=== PATIENT | male | born 1980 | race Hispanic/Latino ===

== ENCOUNTER 2018-10-19 20:04 | Emergency (ER) | payer SELFPAY ==
[2018-10-19 20:29] VITALS: BP 159/93
--- NOTE | 2018-10-19 20:31 | Emergency Department Report ---
ED ENT HPI - General Chief complaint: Dental/Oral Stated complaint: ABSCESS TOOTH/SWELLING/PAIN Time Seen by Provider: 10/19/18 20:27 Source: patient Mode of arrival: Ambulatory Limitations: No Limitations - History of Present Illness Initial comments: pt is a 38 yo male who presents to the ED with c/o left sided facial that began yesterday. pt states he has left lower dental pain. He states he last saw a dentist two years ago. states he has a known bad tooth on the left lower side. no fever, no drainage. no PMHx. no allergies to meds. no daily meds. +smoker, non drinker, +marijuana. - Related Data Previous Rx's Medication Instructions Recorded Last Taken Type Acetaminophen/Codeine [Tylenol 1 tab PO Q6H PRN #12 tab 10/19/18 Unknown Rx /Codeine # 3 tab] Amoxicillin/K Clav Tab [Augmentin 1 tab PO Q12HR 7 Days #14 tab 10/19/18 Unknown Rx 875 mg] Clindamycin [Clindamycin CAP] 450 mg PO TID 7 Days #63 capsule 10/19/18 Unknown Rx Ibuprofen [Motrin 600 MG tab] 600 mg PO Q8H PRN #20 tablet 10/19/18 Unknown Rx Allergies Allergy/AdvReac Type Severity Reaction Status Date / Time No Known Allergies Allergy Unverified 10/19/18 20:06 ED Dental HPI - General Chief complaint: Dental/Oral Stated complaint: ABSCESS TOOTH/SWELLING/PAIN Time Seen by Provider: 10/19/18 20:27 Source: patient Mode of arrival: Ambulatory Limitations: No Limitations - Related Data Previous Rx's Medication Instructions Recorded Last Taken Type Acetaminophen/Codeine [Tylenol 1 tab PO Q6H PRN #12 tab 10/19/18 Unknown Rx /Codeine # 3 tab] Amoxicillin/K Clav Tab [Augmentin 1 tab PO Q12HR 7 Days #14 tab 10/19/18 Unknown Rx 875 mg] Clindamycin [Clindamycin CAP] 450 mg PO TID 7 Days #63 capsule 10/19/18 Unknown Rx Ibuprofen [Motrin 600 MG tab] 600 mg PO Q8H PRN #20 tablet 10/19/18 Unknown Rx Allergies Allergy/AdvReac Type Severity Reaction Status Date / Time No Known Allergies Allergy Unverified 10/19/18 20:06 ED Review of Systems ROS: Stated complaint: ABSCESS TOOTH/SWELLING/PAIN Other details as noted in HPI Comment: All other systems reviewed and negative ED Past Medical Hx - Past Medical History Previous Medical History?: No - Surgical History Past Surgical History?: No - Medications Home Medications: Home Medications Medication Instructions Recorded Confirmed Last Taken Type Acetaminophen/Codeine [Tylenol 1 tab PO Q6H PRN #12 tab 10/19/18 Unknown Rx /Codeine # 3 tab] Amoxicillin/K Clav Tab [Augmentin 1 tab PO Q12HR 7 Days #14 tab 10/19/18 Unknown Rx 875 mg] Clindamycin [Clindamycin CAP] 450 mg PO TID 7 Days #63 capsule 10/19/18 Unknown Rx Ibuprofen [Motrin 600 MG tab] 600 mg PO Q8H PRN #20 tablet 10/19/18 Unknown Rx ED Physical Exam - General Limitations: No Limitations General appearance: alert, in no apparent distress - Head Head exam: Present: atraumatic, normocephalic - Eye Eye exam: Present: normal appearance, PERRL - ENT ENT exam: Present: normal orophraynx, mucous membranes moist, other (partially cracked tooth on the left lower side, edema present to the left lower jaw, no edema present on the gums, uvula is midline, no uvula edema, missing teeth from the right lower side, multiple dental caries) - Respiratory Respiratory exam: Absent: respiratory distress - Neurological Exam Neurological exam: Present: alert, oriented X3 - Psychiatric Psychiatric exam: Present: normal affect, normal mood - Skin Skin exam: Present: warm, dry, intact ED Course Vital Signs 10/19/18 20:27 Temperature 99.2 F Pulse Rate 105 H Respiratory 18 Rate Blood Pressure 159/93 ED Medical Decision Making - Medical Decision Making pt is a 38 yo male who presents to the ED with c/o left sided facial that began yesterday. pt states he has left lower dental pain. He states he last saw a dentist two years ago. states he has a known bad tooth on the left lower side. no fever, no drainage. no PMHx. no allergies to meds. no daily meds. +smoker, non drinker, +marijuana. pt is afebrile. on exam: partially cracked tooth on the left lower side, edema present to the left lower jaw, no edema present on the gums, uvula is midline, no uvula edema, missing teeth from the right lower side, multiple dental caries, examination consistent with dental abscess/dental infection. pt given clindamycin/augmentin, pain medication, and anti-in flammatory. discussed to please take all medication as prescribed to completion. pt given list of dental clinics. discussed in detail the importance of following up with a dentist. advised to only take pain medication for severe pain and do not drive or operate heavy machinery while taking. please follow up with a dentist in the next 3-5 days. return to the emergency room for any new or worsening symptoms. Critical care attestation.: If time is entered above; I have spent that time in minutes in the direct care of this critically ill patient, excluding procedure time. ED Disposition Clinical Impression: Dental abscess, Dental caries Disposition: TO HOME OR SELFCARE Is pt being admited?: No Does the pt Need Aspirin: No Condition: Stable Instructions: Dental Abscess (ED), Dental Caries (ED) Additional Instructions: Please take all medication as prescribed to completion. Only take pain medication for severe pain and do not drive or operate heavy machinery while taking. please follow up with a dentist in the next 3-5 days. return to the emergency room for any new or worsening symptoms. Prescriptions: Amoxicillin/K Clav Tab [Augmentin 875 mg] 1 tab PO Q12HR 7 Days #14 tab Clindamycin [Clindamycin CAP] 450 mg PO TID 7 Days #63 capsule Ibuprofen [Motrin 600 MG tab] 600 mg PO Q8H PRN #20 tablet PRN Reason: Pain Acetaminophen/Codeine [Tylenol /Codeine # 3 tab] 1 tab PO Q6H PRN #12 tab PRN Reason: Pain , Severe (7-10) Referrals: a, dentist [Other] - 3-5 Days Time of Disposition: 20:38 Print Language: HUNGARIAN
== END 2018-10-19 21:05 | disposition home or self-care (01) ==
LOC: ED 20:04
DX: K04.7 Periapical abscess without sinus (principal); K02.9 Dental caries, unspecified
CPT/HCPCS: 99282